=== PATIENT | female | born 1995 | race Two or more races ===

== ENCOUNTER 2017-08-12 12:16 | Emergency (ER) | payer MEDICAID, OTHER ==
[2017-08-12 12:49] LABS: ABS Basophils 0 10^3/ul (0-0.2); ABS Eosinophils 0 10^3/ul (0-0.6); ABS Lymphocytes 2.2 10^3/ul (1.0-4.8); ABS Monocytes 0.8 10^3/ul (0-0.8); ABS Neutrophils 10.7 10^3/ul (1.5-7.7); ABS Nucleated RBC 0 10^3/ul; Eosinophil % 0.2 % (0-6); Hematocrit 31 % (35-47); Hemoglobin 9.9 g/dl (12.0-16.0); Lymphocyte % 16.1 % (25-47); Mean Corpuscular HGB Conc 33 g/dl (31-36); Mean Corpuscular Hemoglobin 27 pg (27-31); Mean Corpuscular Volume 82 fL (80-97); Mean Platelet Volume 11 um3 (7.4-10.4); Nucleated Red Blood Cells % 0; Platelet Count 123 10^3/ul (150-450); Red Blood Count 3.71 10^6/ul (4.0-5.4); Red Cell Distribution Width 16 % (10.5-15); White Blood Count 13.7 10^3/ul (3.5-10.8)
[2017-08-12 13:03] LABS: EGFR Non-African American 106.4 (>60)
--- NOTE | 2017-08-12 13:41 | ED ---
HPI Chest Pain - HPI Summary HPI Summary: 22 female presents to ED with complaints of having an episode of chest tightness that began this morning around 11am and lasted approximately 30 minutes, improved spontaneously. Patient states this also happened about 1 week ago and lasted the same amount of time. Patient states she gets anxious because her chest feels tight and like she can't breathe. Denies chest pain. Admits to having GERD throughout and feels similar however not the "tightness". Nothing makes better or worse. She also complains of the tightness feeling in her upper abdomen. She is 37 weeks and has not had any complications thus far. No vaginal bleeding or symptoms. No PMHx, no medications. No fever, chills, cough or recent illness. No cigarette use, prolonged bed rest or long distance travel. Is currently asymptomatic without any complaints, chest pain or trouble breathing/SOB. Patient is from [place] and sees OBGYN in [place], follows up eery 2 weeks, has appointment Aug 14 for repeat blood work and routine follow up. - History of Current Complaint Chief Complaint: EDChestPainROMI Time Seen by Provider: 08/12/17 12:24 Hx Obtained From: Patient Onset/Duration: Started Hours Ago - 11am Timing: Constant, Lasting Minutes - 30-60min Initial Severity: Mild Current Severity: None Pain Intensity: 6 Pain Scale Used: 0-10 Numeric Chest Pain Location: Diffuse Chest Pain Radiates: Yes Chest Pain Radiates To:: Back Character: Burning, Tightness Aggravating Factor(s): Nothing Alleviating Factor(s): Nothing Associated Signs and Symptoms: Negative: Headaches, Numbness, Tingling, Weakness , Palpitations - Risk Factors Pulmonary Embolism Risk Factors: Negative - Allergy/Home Medications Allergies/Adverse Reactions: Allergies Allergy/AdvReac Type Severity Reaction Status Date / Time No Known Allergies Allergy Verified 08/12/17 13:02 PMH/Surg Hx/FS Hx/Imm Hx Endocrine/Hematology History: Denies: Hx Diabetes Cardiovascular History: Denies: Hx Hypertension Respiratory History: Denies: Hx Asthma - Surgical History Surgery Procedure, Year, and Place: none - Immunization History Immunizations Up to Date: Yes Infectious Disease History: No Infectious Disease History: Denies: Traveled Outside the [place] in Last 30 Days - Family History Known Family History: Positive: None - Social History Alcohol Use: None Substance Use Type: Reports: None Smoking Status (MU): Never Smoked Tobacco Review of Systems Constitutional: Negative Positive: Other - chest tightness, resolved Respiratory: Negative Genitourinary: Negative Musculoskeletal: Negative Neurological: Negative All Other Systems Reviewed And Are Negative: Yes Physical Exam Triage Information Reviewed: Yes Vital Signs On Initial Exam: Initial Vitals Temp Pulse Resp BP Pulse Ox 97.7 F 69 12 100/45 98 08/12/17 12:23 08/12/17 12:23 08/12/17 12:23 08/12/17 12:23 08/12/17 12:23 Vital Signs Reviewed: Yes Appearance: Positive: Well-Appearing, No Pain Distress, Well-Nourished Skin: Positive: Warm, Skin Color Reflects Adequate Perfusion, Dry. Negative: Cold, Cyanosis @, Jaundiced Head/Face: Positive: Normal Head/Face Inspection Eyes: Positive: Conjunctiva Clear ENT: Positive: Normal ENT inspection, Hearing grossly normal, Pharynx normal Neck: Positive: Supple, Nontender Respiratory/Lung Sounds: Positive: Clear to Auscultation, Breath Sounds Present. Negative: Rales, Rhonchi, Wheezes Cardiovascular: Positive: Normal, RRR, Pulses are Symmetrical in both Upper and Lower Extremities. Negative: Murmur, Rub Bowel Sounds: Positive: Present Musculoskeletal: Positive: Normal, Strength/ROM Intact Neurological: Positive: Normal, Sensory/Motor Intact, Alert, Oriented to Person Place, Time - [place] Coma Scale Coma Scale Total: 15 Diagnostics - Vital Signs Vital Signs Temp Pulse Resp BP Pulse Ox 08/12/17 13:30 75 16 111/70 97 08/12/17 13:02 97 08/12/17 13:00 78 13 113/67 98 08/12/17 12:30 81 13 113/72 97 08/12/17 12:26 12 08/12/17 12:24 79 14 99 08/12/17 12:23 97.7 F 69 12 100/45 98 - Laboratory Lab Results: Lab Results 08/12/17 08/12/17 08/12/17 Range/Units 12:40 12:40 12:40 WBC 13.7 H (3.5-10.8) 10^3/ul RBC 3.71 L (4.0-5.4) 10^6/ul Hgb 9.9 L (12.0-16.0) g/dl Hct 31 L (35-47) % MCV 82 (80-97) fL MCH 27 (27-31) pg MCHC 33 (31-36) g/dl RDW 16 H (10.5-15) % Plt Count 123 L (150-450) 10^3/ul MPV 11 H (7.4-10.4) um3 Neut % (Auto) 77.9 (38-83) % Lymph % (Auto) 16.1 L (25-47) % [place] % (Auto) 5.5 (1-9) % Eos % (Auto) 0.2 (0-6) % Baso % (Auto) 0.3 (0-2) % Absolute Neuts (auto) 10.7 H (1.5-7.7) 10^3/ul Absolute Lymphs (auto) 2.2 (1.0-4.8) 10^3/ul Absolute Monos (auto) 0.8 (0-0.8) 10^3/ul Absolute Eos (auto) 0 (0-0.6) 10^3/ul Absolute Basos (auto) 0 (0-0.2) 10^3/ul Absolute Nucleated RBC 0 10^3/ul Nucleated RBC % 0 Sodium 135 (133-145) mmol/L Potassium 3.5 (3.5-5.0) mmol/L Chloride 106 (101-111) mmol/L Carbon Dioxide 23 (22-32) mmol/L Anion Gap 6 (2-11) mmol/L BUN 9 (6-24) mg/dL Creatinine 0.69 (0.51-0.95) mg/dL Est GFR ( Amer) 136.8 (>60) Est GFR (Non-Af Amer) 106.4 (>60) BUN/Creatinine Ratio 13.0 (8-20) Glucose 74 (70-100) mg/dL Lactic Acid 1.2 (0.5-2.0) mmol/L Calcium 8.7 (8.6-10.3) mg/dL Total Bilirubin 0.70 (0.2-1.0) mg/dL AST 25 (13-39) U/L ALT 26 (7-52) U/L Alkaline Phosphatase 146 H (34-104) U/L Troponin I 0.00 (<0.04) ng/mL Total Protein 6.3 L (6.4-8.9) g/dL Albumin 3.4 (3.2-5.2) g/dL Globulin 2.9 (2-4) g/dL Albumin/Globulin Ratio 1.2 (1-3) Result Diagrams: 08/12/17 12:40 08/12/17 12:40 Lab Statement: Any lab studies that have been ordered have been reviewed, and results considered in the medical decision making process. - EKG EKG Cardiac Rate: NL EKG Rhythm: Sinus Rhythm ST Segment: Normal Ectopy: None EKG Interpretation: NSR NSTEMI EKG Comparison: No Significant Change Chest Pain Course/Dx - Course Course Of Treatment: lab obtained and showed anemia, slightly elevated WBC and thrombocytopenia which all appear to be normal for a 37 week female. Has been anemic and taking supplemental iron throughout . EKG obtained and normal sinus rhythym. negative troponin. no risk factors for PE or concern at this time. Normal vitals. Spoke with OBGYN Dr Saravia who was aware of patient and stated no concern and /fetus is without concern at this time. Normal stress test. Mother has felt baby moving appropriately. No other concerns at this time. Appears to be suffering from arcadio milner contractions or possible anxiety. Has close follow up with appointment with OBGYN Aug 14. No further work up required at this time. Re-check labs and follow up. Aware of worsening signs and symptoms to watch out for. - Chest Pain Differential Diagnosis/HQI/PQRI: Chest Wall, Other: - anxiety, , arcadio milner contraction - Diagnoses Provider Diagnoses: , Chest tightness, Anxiety, Anemia - Provider Notifications Discussed Care Of Patient With: Dr Saravia Time Discussed With Above Provider: 16:50 Discharge - Discharge Plan Condition: Stable Disposition: HOME Patient Education Materials: (ED), Iron Rich Diet (ED), Anemia (ED), Anxiety (ED), Arcadio Milner Contractions (ED) Referrals: No Primary Care Phys,NOPCP [Primary Care Provider] - Additional Instructions: Please follow up with OBGYN on your appointment at August 14. Increase fluid intake. Take appropriate amount of iron as you were previously prescribed. Any new or worsening symptoms please seek medical attention as discussed. If symptoms return or worsen please return.
[2017-08-12] MEDS ORDERED: NS 0.9% 1000 ML* 1,000 ML IV ONE (13:52)
[2017-08-12 16:59] VITALS: BP 110/66
== END 2017-08-12 16:58 | disposition home or self-care (01) ==
LOC: ED 12:16
DX: Z34.93 Encounter for supervision of normal pregnancy, unspecified, third trimester (principal); F41.9 Anxiety disorder, unspecified; D64.9 Anemia, unspecified; R07.89 Other chest pain
CPT/HCPCS: 36415; 80053; 83605; 84484; 85025; 87086; 93005; 96360; 99283